=== PATIENT | male | born 1945 | race Caucasian/White ===

== ENCOUNTER 2018-04-05 00:44 | Inpatient (IN) ==
[2018-04-05 02:36] LABS: Basophils # 0.2 10*3/uL (0.0-0.2); Basophils % 1.1 % (0.0-0.8); Eosinophils # 0.1 10*3/uL (0.0-0.87); Eosinophils % 0.6 % (0.00-10.9); Hematocrit 52.6 VOL% (42.0-52.0); Hemoglobin 18.1 GM/DL (14.0-18.0); Immature Granulocytes % 6.4 %; Immature Granulocytes Absolute 0.92 #; Lymphocytes # 2.9 10*3/uL (1.4-4.0); Lymphocytes % 20.1 % (21.2-54.2); Mean Corpuscular HGB Conc 34.4 GM/DL (32-36); Mean Corpuscular Hemoglobin 29 PG (27-34); Mean Corpuscular Volume 85.1 FL (87-102); Mean Platelet Volume 10.1 FL (9.6-12.0); Monocytes # 1.7 10*3/uL (0.11-0.8); Monocytes % 12.1 % (1.7-12.7); Neutrophils # 8.5 10*3/uL (1.4-7.4); Neutrophils % 59.7 % (38.7-73.9); Platelet Count 154 T/CUMM (130-400); Red Blood Count 6.18 MC/CUMM (3.8-5.5); Red Cell Distribution Width 19.5 % (9.3-17.3); White Blood Count 14.3 T/CUMM (4-12)
[2018-04-05 02:57] LABS: Alanine Aminotransferase 20 U/L (16-61); Albumin 2.7 G/DL (3.4-5.0); Alkaline Phosphatase 275 U/L (45-117); Amylase 136 U/L (25-115); Aspartate Amino Transferase 56 U/L (0-37); Blood Urea Nitrogen 65 MG/DL (7-18); Calcium 9.4 MG/DL (8.5-10.1); Glucose 106 MG/DL (74-106); Osmolality,Calculated 297.4 MOS/KG (273-304); Potassium 4.3 MMOL/L (3.5-5.1); Sodium 140 MMOL/L (136-145); Total Protein 7.6 G/DL (6.4-8.3)
[2018-04-05 02:59] LABS: Lactic Acid 4.6 MMOL/L (0.4-2.0)
[2018-04-05 03:02] LABS: Ammonia 56 UMOL/L (11-32)
[2018-04-05] MEDS ORDERED: SODIUM CHLORIDE 0.9% 1,000 ML IV STA ×2 (03:56→04:48)
[2018-04-05] MEDS ORDERED: ONDANSETRON 4 MG/2 ML VIAL IM STA (03:59)
[2018-04-05] MEDS ORDERED: MORPHINE 4 MG/1 ML VIAL IV STA (03:59)
[2018-04-05 04:16] LABS: Band Neutrophils 12 % (0-10); Eosinophils 2 % (0-10); Lymphocytes 7 % (20-55); Nucleated Red Blood Cells 5 (0-5); Segmented Neutrophils 74 % (50-85); Total Cells Counted 100
[2018-04-05 04:17] LABS: Anisocytosis 1+; Polychromasia 1+
[2018-04-05 04:18] LABS: Poikilocytosis 1+
[2018-04-05] MEDS ORDERED: fentaNYL 100 MCG/2 ML VIAL ONE (04:30)
[2018-04-05] MEDS ORDERED: fentaNYL 100 MCG/2 ML VIAL IV STA (04:42)
[2018-04-05] MEDS ORDERED: ONDANSETRON 4 MG/2 ML VIAL IV STA (04:45)
[2018-04-05] MEDS ORDERED: LACTULOSE 20 GM/30 ML UDCUP PO PRN (06:21)
[2018-04-05] MEDS ORDERED: ONDANSETRON 4 MG/2 ML VIAL IV PRN (06:21)
[2018-04-05] MEDS ORDERED: ENOXAPARIN 40 MG/0.4 ML SYRINGE SUBCUT SCH (06:30)
[2018-04-05] MEDS ORDERED: cefTRIAXone 1,000 MG in SODIUM CHLORIDE 0.9% 100 ML IV SCH (06:30)
[2018-04-05 07:11] LABS: Apearance,Urine CLOUDY (Clear); Bacteria,Urine Many /HPF (Few); Bilirubin,Urine Negative (Negative); Blood, Urine Large mg/dL (Negative); Glucose,Urine (UA) Negative (Negative); Ketones,Urine 5 mg/dL (Negative); Mucus,Urine Occasional /LPF (Occasional); Nitrite,Urine Negative (Negative); Protein,Urine 100 MG/DL; RBC,Urine 511 /HPF (0-4); Urine Color Amber (Yellow); Urine Specific Gravity 1.016 (1.001-1.035); WBC,Urine 78 /HPF (0-6)
[2018-04-05] MEDS: SODIUM CHLORIDE 0.9% 1,000 ML IV SCH ×2 (10:02→17:51)
[2018-04-05] MEDS: MORPHINE 4 MG/1 ML VIAL IV PRN ×4 (10:02→22:15)
[2018-04-05] MEDS: PANTOPRAZOLE 40 MG TABLET PO SCH (10:04)
[2018-04-05] MEDS: DOXYCYCLINE MONOHYDRATE SUSP 5 MG/ML 60 ML/BOTTLE PO SCH ×2 (10:09→20:50)
[2018-04-05 10:37] LABS: Amorphous Crystals,Urine Occasional /HPF (Few); Apearance,Urine CLOUDY (Clear); Bilirubin,Urine Negative (Negative); Blood, Urine Large mg/dL (Negative); Glucose,Urine (UA) Negative (Negative); Ketones,Urine Negative (Negative); Mucus,Urine Occasional /LPF (Occasional); Nitrite,Urine Negative (Negative); Protein,Urine 100 MG/DL; RBC,Urine 2241 /HPF (0-4); Urine Color Amber (Yellow); Urine Specific Gravity 1.016 (1.001-1.035); WBC,Urine 168 /HPF (0-6)
[2018-04-06] MEDS: SODIUM CHLORIDE 0.9% 1,000 ML IV SCH ×2 (02:05→09:52)
[2018-04-06] MEDS: MORPHINE 4 MG/1 ML VIAL IV PRN ×5 (04:18→22:50)
[2018-04-06 05:49] LABS: Basophils # 0.1 10*3/uL (0.0-0.2); Basophils % 0.9 % (0.0-0.8); Eosinophils # 0.1 10*3/uL (0.0-0.87); Eosinophils % 1.2 % (0.00-10.9); Hematocrit 44.3 VOL% (42.0-52.0); Hemoglobin 14.6 GM/DL (14.0-18.0); Immature Granulocytes % 5.7 %; Lymphocytes # 2.3 10*3/uL (1.4-4.0); Lymphocytes % 21.4 % (21.2-54.2); Mean Corpuscular Hemoglobin 29 PG (27-34); Mean Corpuscular Volume 87.7 FL (87-102); Mean Platelet Volume 10.5 FL (9.6-12.0); Monocytes # 1.2 10*3/uL (0.11-0.8); Monocytes % 11.7 % (1.7-12.7); NRBC # 0.25 10*3/uL; Neutrophils # 6.2 10*3/uL (1.4-7.4); Neutrophils % 59.1 % (38.7-73.9); Platelet Count 127 T/CUMM (130-400); Red Blood Count 5.05 MC/CUMM (3.8-5.5); Red Cell Distribution Width 18.6 % (9.3-17.3); White Blood Count 10.5 T/CUMM (4-12)
[2018-04-06 06:08] LABS: Bilirubin,Total 1.4 MG/DL (0.2-1.0); Calcium 8.5 MG/DL (8.5-10.1); Potassium 3.5 MMOL/L (3.5-5.1); Total Protein 5.7 G/DL (6.4-8.3)
[2018-04-06 06:23] LABS: Hypochromasia Slight; Lymphocytes 10 % (20-55); Nucleated Red Blood Cells 4 (0-5); Polychromasia Slight; Segmented Neutrophils 83 % (50-85); Total Cells Counted 100
[2018-04-06 06:24] LABS: Platelet Estimate Decreased
[2018-04-06] MEDS ORDERED: fentaNYL 25 MCG/HR PATCH TRANSDERM SCH (09:00)
[2018-04-06] MEDS: DOXYCYCLINE MONOHYDRATE SUSP 5 MG/ML 60 ML/BOTTLE PO SCH ×2 (09:48→20:38)
[2018-04-06] MEDS: ENOXAPARIN 40 MG/0.4 ML SYRINGE SUBCUT SCH (09:50)
[2018-04-06] MEDS: PANTOPRAZOLE 40 MG TABLET PO SCH (09:51)
[2018-04-06] MEDS: SODIUM CHLOR 0.45% KCL 20 MEQ 20 MEQ/1,000 ML BAG IV SCH (09:56)
[2018-04-07] MEDS: SODIUM CHLOR 0.45% KCL 20 MEQ 20 MEQ/1,000 ML BAG IV SCH (05:54)
[2018-04-07 06:38] LABS: Basophils # 0.1 10*3/uL (0.0-0.2); Basophils % 1.1 % (0.0-0.8); Eosinophils # 0.1 10*3/uL (0.0-0.87); Eosinophils % 1.4 % (0.00-10.9); Hematocrit 46.9 VOL% (42.0-52.0); Hemoglobin 15.1 GM/DL (14.0-18.0); Immature Granulocytes % 5.5 %; Immature Granulocytes Absolute 0.56 #; Lymphocytes # 2.4 10*3/uL (1.4-4.0); Lymphocytes % 23.5 % (21.2-54.2); Mean Corpuscular HGB Conc 32.2 GM/DL (32-36); Mean Corpuscular Hemoglobin 29 PG (27-34); Mean Corpuscular Volume 91.1 FL (87-102); Mean Platelet Volume 10.1 FL (9.6-12.0); Monocytes # 1.1 10*3/uL (0.11-0.8); Monocytes % 10.8 % (1.7-12.7); NRBC # 0.23 10*3/uL; Neutrophils # 5.8 10*3/uL (1.4-7.4); Neutrophils % 57.7 % (38.7-73.9); Platelet Count 112 T/CUMM (130-400); Red Blood Count 5.15 MC/CUMM (3.8-5.5); White Blood Count 10.1 T/CUMM (4-12)
[2018-04-07 06:58] LABS: Osmolality,Calculated 303.9 MOS/KG (273-304); Potassium 3.6 MMOL/L (3.5-5.1)
[2018-04-07 09:20] LABS: Band Neutrophils 6 % (0-10); Eosinophils 1 % (0-10); Hypochromasia 1+; Lymphocytes 15 % (20-55); Platelet Estimate Decreased; Polychromasia Slight; Segmented Neutrophils 68 % (50-85); Total Cells Counted 100
[2018-04-07] MEDS: DOXYCYCLINE MONOHYDRATE SUSP 5 MG/ML 60 ML/BOTTLE PO SCH ×2 (10:06→20:05)
[2018-04-07] MEDS: PANTOPRAZOLE 40 MG TABLET PO SCH (10:07)
[2018-04-07] MEDS: MORPHINE 4 MG/1 ML VIAL IV PRN ×3 (10:08→16:37)
[2018-04-07] MEDS: ENOXAPARIN 40 MG/0.4 ML SYRINGE SUBCUT SCH (10:11)
[2018-04-07] MEDS ORDERED: LIDOCAINE 2% TOP JELLY 5 ML TUBE TOP ONE (10:36)
[2018-04-07] MEDS ORDERED: fentaNYL 50 MCG/HR PATCH TRANSDERM SCH (11:00)
[2018-04-07] MEDS: DEXTROSE 5% KCL 20 MEQ 20 MEQ/1,000 ML BAG IV SCH (14:04)
[2018-04-07] MEDS: HYDROCORTISONE 25 MG SUPP RECTAL SCH (14:06)
[2018-04-08] MEDS: HYDROCORTISONE 25 MG SUPP RECTAL SCH ×2 (01:07→09:54)
[2018-04-08 07:53] LABS: Calcium 9.2 MG/DL (8.5-10.1); Osmolality,Calculated 293.4 MOS/KG (273-304); Potassium 4.1 MMOL/L (3.5-5.1)
[2018-04-08] MEDS: DEXTROSE 5% KCL 20 MEQ 20 MEQ/1,000 ML BAG IV SCH (09:52)
[2018-04-08] MEDS: PANTOPRAZOLE 40 MG TABLET PO SCH ×2 (09:52→10:05)
[2018-04-08] MEDS: ENOXAPARIN 40 MG/0.4 ML SYRINGE SUBCUT SCH (09:52)
[2018-04-08] MEDS: MORPHINE 4 MG/1 ML VIAL IV PRN ×2 (10:37→15:13)
[2018-04-08 11:59] VITALS: BP 112/76
[2018-04-08] MEDS ORDERED: MORPHINE 10 MG/1 ML VIAL IV PRN (13:00)
[2018-04-08] MEDS ORDERED: KETOROLAC 30 MG/1 ML VIAL IV SCH (13:00)
[2018-04-08] MEDS: DOXYCYCLINE MONOHYDRATE SUSP 5 MG/ML 60 ML/BOTTLE PO SCH (15:08)
== END 2018-04-08 15:50 | disposition hospice, home (50) | DRG 947 ==
LOC: EDUNIT# → EDBD → N.ED 00:44 → N.EDINP 06:21 → N.4E 08:22